=== PATIENT | male | born 1955 | race Hispanic/Latino ===

== ENCOUNTER → 2024-05-21 | Outpatient (REF) | payer MEDICARE ==
[~2024-05-21] MED LIST: IOPAMIDOL 370 MG/ML 100 ML INFUS..BTL INJ ONE; METOPROLOL TARTRATE 25 MG TAB ONE; METOPROLOL TARTRATE INJ 1 MG/ML VIAL ONE; NITROGLYCERIN 0.4 MG SUBL ONE; SODIUM CHLORIDE 0.9% 100 ML ONE
[2024-05-21 08:41] LABS: CREATININE, SERUM 1.32 mg/dL (0.72-1.25)
== END ==
LOC: CT 07:30
PROVIDERS: ATTEND Internal Medicine Cardiovascular Disease
DX: R07.9 Chest pain, unspecified (principal)
CPT/HCPCS: 36415; 75574; 75580; 82565; 84520; J7050; Q9967